=== PATIENT | male | born 1945 ===

== ENCOUNTER 2017-06-13 07:46 | Day surgery (SDC) | payer OTHER ==
[~2017-06-13] VITALS: Ht 167.6 cm; Wt 108.9 kg
[~2017-06-13 07:46] MED LIST: ASPI81CH PO; ATOR20 PO; CHOL10002 PO; CITA20 PO; CLOP75; FOSI10 PO; GLIM4 PO; INSLI100I SC; INSULANPEN SC; KETO120T TOP; LABE100 PO; LEVSOD75 PO; MAGOXI400 PO; METF500 PO; Norvasc10 MG PO; TRIHYD253B PO; TRIHYD5075
== END 2017-06-13 09:56 | disposition home or self-care (01) ==
LOC: ORSCSDS 07:46
PROVIDERS: Internal Medicine Gastroenterology
PROC: 0DBK8ZX Excision of Ascending Colon, Via Natural or Artificial Opening Endoscopic, Diagnostic (ICD-10-PCS; principal; 2017-06-13 09:00)
PROC: 0DBM8ZX Excision of Descending Colon, Via Natural or Artificial Opening Endoscopic, Diagnostic (ICD-10-PCS; principal; 2017-06-13 09:00)
DX: Z12.11 Encounter for screening for malignant neoplasm of colon (principal); Z86.010 Personal history of colon polyps; D12.2 Benign neoplasm of ascending colon; K63.5 Polyp of colon; K57.30 Diverticulosis of large intestine without perforation or abscess without bleeding; E11.9 Type 2 diabetes mellitus without complications; I10 Essential (primary) hypertension; G47.33 Obstructive sleep apnea (adult) (pediatric); Z79.4 Long term (current) use of insulin; Z79.899 Other long term (current) drug therapy; Z87.891 Personal history of nicotine dependence; E66.01 Morbid (severe) obesity due to excess calories; Z68.41 Body mass index [BMI] 40.0-44.9, adult
CPT/HCPCS: 82947; 88305; J7120

== ENCOUNTER → 2020-12-27 | Outpatient (CLI) | payer OTHER ==
[2020-12-27 16:57] LABS: Creatinine, Urine Random 65.1 mg/dL (27.00-270.00)
[2020-12-27 17:06] LABS: Protein, Urine Random 286.9 mg/dL (0.0-11.9); Protein/Creat Ratio, Ur Random 4.4
== END | disposition home or self-care (01) ==
LOC: LAB SHORT 14:00 → LAB 14:00
PROVIDERS: Internal Medicine
DX: R80.9 Proteinuria, unspecified (principal)
CPT/HCPCS: 82570; 84156

== ENCOUNTER → 2021-10-24 | Outpatient (CLI) | payer OTHER | END | disposition home or self-care (01) | LOC: LAB SHORT 10:25 | DX: L02.91 Cutaneous abscess, unspecified (principal) | CPT/HCPCS: 87070; 87075; 87205 ==

== ENCOUNTER → 2022-08-02 | Outpatient (CLI) | payer OTHER ==
[~2022-08-02] MED LIST changes: +ATOR40TA PO; +HYDR100 PO; +HYDR1TAB94 PO
[2022-08-02 19:24] LABS: Microalb/Creat Ratio UR, Rand 929.87 mg/g (0.000-30.000)
== END | disposition home or self-care (01) ==
LOC: LAB 07:30 → LAB SHORT 07:30 → LAB FUT 07-09 14:50
PROVIDERS: Internal Medicine
DX: E11.22 Type 2 diabetes mellitus with diabetic chronic kidney disease (principal); N18.31 Chronic kidney disease, stage 3a; D63.1 Anemia in chronic kidney disease; D03.9 Melanoma in situ, unspecified; E11.8 Type 2 diabetes mellitus with unspecified complications; C61 Malignant neoplasm of prostate; E55.9 Vitamin D deficiency, unspecified
CPT/HCPCS: 82043; 82570

== ENCOUNTER 2024-09-12 04:08 | Emergency (ER) | payer OTHER ==
[~2024-09-12] VITALS: Ht 170.2 cm; Wt 95.2 kg
[2024-09-12 04:31] LABS: BASOPHILS ABSOLUTE AUTO 0.06 K/mm3 (0.00-0.23); BASOPHILS PERCENT AUTO 0 % (0-2); EOSINOPHILS ABSOLUTE AUTO 0.18 K/mm3 (0.00-0.68); EOSINOPHILS PERCENT AUTO 1 % (0-6); Hematocrit 40.6 % (37.0-53.0); Hemoglobin 13.6 g/dL (13.5-17.5); IMMATURE GRAN ABSOLUTE AUTO 0.07 K/mm3 (0.00-0.10); IMMATURE GRAN PERCENT AUTO 1 % (0-1); LYMPHOCYTES ABSOLUTE AUTO 1.41 K/mm3 (0.84-5.20); LYMPHOCYTES PERCENT AUTO 10 % (21-46); MONOCYTES ABSOLUTE AUTO 1.08 K/mm3 (0.16-1.47); MONOCYTES PERCENT AUTO 7 % (4-13); Mean Corpuscular HGB 29.6 pg (26.0-34.0); Mean Corpuscular HGB Conc 33.5 g/dL (31.5-36.5); Mean Corpuscular Volume 88 fL (80-100); Mean Platelet Volume 9.8 fL (9.1-12.4); NEUTROPHILS ABSOLUTE AUTO 11.94 K/mm3 (1.96-9.15); NEUTROPHILS PERCENT AUTO 81 % (41-73); Platelet Count 334 K/mm3 (150-400); RDW Coefficient Variation 12.3 % (11.7-14.2); RDW Standard Deviation 39.9 fL (35.1-46.3); White Blood Cell Count 14.74 K/mm3 (4.00-11.30)
[2024-09-12] MEDS ORDERED: Ondansetron HCl 2 MG / ML 2ML Vial IV ONE (04:40)
[2024-09-12] MEDS ORDERED: Morphine Sulfate 4 MG/1 ML Injection IV ONE (04:40)
[2024-09-12 04:49] LABS: Albumin, Blood 3.3 g/dL (3.4-5.0); Albumin/Globulin Ratio 0.8 (0.8-1.8); Bilirubin, Total 0.5 mg/dL (0.1-1.0); Bun/Creatinine Ratio 32.2 (12.0-20.0); Calcium, Blood 9.1 mg/dL (8.5-10.1); Creatinine, Blood 1.77 mg/dL (0.60-1.20); Potassium, Blood 4.9 mmol/L (3.5-5.5); Total Protein, Blood 7.3 g/dL (6.4-8.2)
[2024-09-12 07:37] LABS: Source, Urine Clean Catch
[2024-09-12 07:54] VITALS: BP 185/67
[2024-09-12 07:54] LABS: Appearance, Urine Clear (Clear); Bilirubin, Urine Neg (Neg); Blood, Urine Neg (Neg); Color, Urine Yellow (P-Yellow); Glucose Qualitative, Urine 4+ (Neg); Ketones, Urine Neg (Neg); Leukocyte Esterase, Urine Neg (Neg); Nitrite, Urine Neg (Neg); Protein, Urine 3+ (Neg); Specific Gravity, Urine 1.015 (1.003-1.022); Urobilinogen, Urine NORM (Normal)
[2024-09-12] MEDS ORDERED: Lidocaine 2% Jelly Uro-Jet UR ONE (08:15)
[2024-09-12 08:33] LABS: Red Blood Cells, Urine 0-2 /hpf (0-2); Squamous Epithelial Cells Rare /hpf (Few); White Blood Cells, Urine 0-2 /hpf (0-5)
[2024-09-12 08:34] LABS: Amorphous Light (0-Heavy); Bacteria Rare /hpf
[2024-09-12 08:36] LABS: Hyaline Casts 0-2 /lpf (0-2)
== END 2024-09-12 09:12 | disposition home or self-care (01) ==
LOC: ER 04:08
PROVIDERS: Student in an Organized Health Care Education/Training Program
DX: K59.03 Drug induced constipation (principal); T40.2X5A Adverse effect of other opioids, initial encounter; N13.30 Unspecified hydronephrosis; R33.8 Other retention of urine; E03.9 Hypothyroidism, unspecified; E78.5 Hyperlipidemia, unspecified; E11.22 Type 2 diabetes mellitus with diabetic chronic kidney disease; I13.10 Hypertensive heart and chronic kidney disease without heart failure, with stage 1 through stage 4 chronic kidney disease, or unspecified chronic kidney disease; N18.30 Chronic kidney disease, stage 3 unspecified; G47.30 Sleep apnea, unspecified; Z86.73 Personal history of transient ischemic attack (TIA), and cerebral infarction without residual deficits; Z88.1 Allergy status to other antibiotic agents; Z79.4 Long term (current) use of insulin; Z79.01 Long term (current) use of anticoagulants; Z79.890 Hormone replacement therapy; Z79.82 Long term (current) use of aspirin; Z79.899 Other long term (current) drug therapy
CPT/HCPCS: 51798; 74177; 80053; 81001; 83690; 85025; 96374-59; 96375; 99284-25; J2270; J2405; Q9967

== ENCOUNTER 2024-09-14 11:43 | Emergency (ER) | payer OTHER ==
[~2024-09-14] VITALS: Ht 167.6 cm; Wt 90.7 kg
[2024-09-14] MEDS ORDERED: NS 1,000 ML IV SCH (12:10)
[2024-09-14 12:30] VITALS: BP 165/66
[2024-09-14] MEDS ORDERED: Lactulose 20 GM/30 ML UDC PO ONE (12:30)
[2024-09-14] MEDS ORDERED: Milk 150ML/Molasses 150ML (300ML Total) PR ONE (12:30)
[2024-09-14 12:38] LABS: BASOPHILS ABSOLUTE AUTO 0.05 K/mm3 (0.00-0.23); BASOPHILS PERCENT AUTO 0 % (0-2); EOSINOPHILS ABSOLUTE AUTO 0.22 K/mm3 (0.00-0.68); EOSINOPHILS PERCENT AUTO 2 % (0-6); Hematocrit 40.3 % (37.0-53.0); Hemoglobin 13.7 g/dL (13.5-17.5); IMMATURE GRAN ABSOLUTE AUTO 0.06 K/mm3 (0.00-0.10); IMMATURE GRAN PERCENT AUTO 1 % (0-1); LYMPHOCYTES ABSOLUTE AUTO 1.12 K/mm3 (0.84-5.20); LYMPHOCYTES PERCENT AUTO 9 % (21-46); MONOCYTES ABSOLUTE AUTO 0.88 K/mm3 (0.16-1.47); MONOCYTES PERCENT AUTO 7 % (4-13); Mean Corpuscular HGB 30.2 pg (26.0-34.0); Mean Corpuscular Volume 89 fL (80-100); Mean Platelet Volume 9.8 fL (9.1-12.4); NEUTROPHILS ABSOLUTE AUTO 10.16 K/mm3 (1.96-9.15); NEUTROPHILS PERCENT AUTO 81 % (41-73); Platelet Count 323 K/mm3 (150-400); RDW Coefficient Variation 12.1 % (11.7-14.2); RDW Standard Deviation 39.7 fL (35.1-46.3); Red Blood Cell Count 4.53 M/mm3 (4.30-5.90); White Blood Cell Count 12.49 K/mm3 (4.00-11.30)
[2024-09-14 13:03] LABS: Magnesium, Blood 2.9 mg/dL (1.6-2.4)
[2024-09-14 13:04] LABS: Albumin, Blood 2.9 g/dL (3.4-5.0); Albumin/Globulin Ratio 0.7 (0.8-1.8); Bilirubin, Total 0.5 mg/dL (0.1-1.0); Bun/Creatinine Ratio 33.3 (12.0-20.0); Calcium, Blood 8.7 mg/dL (8.5-10.1); Creatinine, Blood 1.68 mg/dL (0.60-1.20); Globulin, Blood 4.2 g/dL (2.2-4.0); Potassium, Blood 5.4 mmol/L (3.5-5.5); Total Protein, Blood 7.1 g/dL (6.4-8.2)
[2024-09-14 14:01] LABS: Source, Urine Clean Catch
[2024-09-14 14:04] LABS: Appearance, Urine Clear (Clear); Bilirubin, Urine Neg (Neg); Blood, Urine Neg (Neg); Color, Urine Yellow (P-Yellow); Glucose Qualitative, Urine 4+ (Neg); Ketones, Urine 2+ (Neg); Leukocyte Esterase, Urine Neg (Neg); Nitrite, Urine Neg (Neg); Protein, Urine 3+ (Neg); Specific Gravity, Urine 1.015 (1.003-1.022); Urobilinogen, Urine NORM (Normal)
[2024-09-14 14:15] LABS: Bacteria Few /hpf; Red Blood Cells, Urine 0-2 /hpf (0-2); Squamous Epithelial Cells Rare /hpf (Few); White Blood Cells, Urine 0-2 /hpf (0-5)
== END 2024-09-14 14:35 | disposition home or self-care (01) ==
LOC: ER 11:43
PROVIDERS: Emergency Medicine
DX: K59.00 Constipation, unspecified (principal); R33.9 Retention of urine, unspecified; E11.22 Type 2 diabetes mellitus with diabetic chronic kidney disease; I12.9 Hypertensive chronic kidney disease with stage 1 through stage 4 chronic kidney disease, or unspecified chronic kidney disease; N18.30 Chronic kidney disease, stage 3 unspecified; E03.9 Hypothyroidism, unspecified; E78.5 Hyperlipidemia, unspecified; Z86.73 Personal history of transient ischemic attack (TIA), and cerebral infarction without residual deficits; Z79.02 Long term (current) use of antithrombotics/antiplatelets; Z79.82 Long term (current) use of aspirin; Z79.4 Long term (current) use of insulin; Z79.899 Other long term (current) drug therapy; Z88.8 Allergy status to other drugs, medicaments and biological substances
CPT/HCPCS: 51702; 51798; 80053; 81001; 83690; 83735; 85025; 96360-59; 99284-25; A9270; J7030